=== PATIENT | female | born 1935 | race Caucasian/White ===

== ENCOUNTER 2019-03-16 10:45 | Inpatient (IN) | payer OTHER ==
[~2019-03-16] VITALS: Ht 157.5 cm; Wt 41.7 kg
[2019-03-16 10:55] VITALS: BP_SYST 149
--- NOTE | 2019-03-16 10:55 | NUR ---
Patient to ER bed 7 to gown for evaluation. Side rails up. Report given to VICTORIA Arnold.
--- NOTE | 2019-03-16 11:00 | NUR ---
BIB family for medical clearance. Patient A&O x3, ambulatory to ER, skin pink and warm, urdu speaking only. 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 "danger to self" per family. Patient climbing out of windows, hitting self, increased agression. Insomnia. Patient answering questions appropriately, agreeable.
--- NOTE | 2019-03-16 11:12 | NUR ---
Called [facility], no beds available for females. Spoke with Erendira, charge nurse.
[2019-03-16 11:37] LABS: BASOPHILS # (AUTO) 0.1 K/uL (0.0-0.2); BASOPHILS % (AUTO) 1.1 % (0.0-2.0); EOSINOPHILS # (AUTO) 0.3 K/uL (0.0-0.4); EOSINOPHILS % (AUTO) 4.6 % (0.0-4.0); HEMATOCRIT 38.5 % (36-48); HEMOGLOBIN 12.8 g/dL (12.0-16.0); LYMPHOCYTES # (AUTO) 1.3 K/uL (1.0-5.5); MEAN CORPUSCULAR HEMOGLOBIN 34 pg (27-31); MEAN CORPUSCULAR HGB CONC 33 % (32-36); MEAN CORPUSCULAR VOLUME 101 fL (79.0-98.0); MONOCYTES # (AUTO) 0.3 K/uL (0.0-1.0); MONOCYTES % (AUTO) 4.2 % (1.7-9.3); NEUTROPHILS # (AUTO) 4.6 K/uL (1.8-7.7); NEUTROPHILS % (AUTO) 70.1 % (40.0-70.0); PLATELET COUNT (AUTO) 239 K/uL (130-430); RED BLOOD CELL COUNT(AUTO) 3.81 MIL/uL (4.2-6.2); RED CELL DISTRIBUTION WIDTH 15.1 % (9.0-15.0); WHITE BLOOD COUNT (AUTO) 6.6 K/uL (4.8-10.8)
[2019-03-16 11:54] LABS: ANION GAP 12 (5-15); CHLORIDE 104 mmol/L (98-107); GLUCOSE 105 mg/dL (70-99); SODIUM SERUM 138 mmol/L (136-145); UREA NITROGEN, BLOOD 32 mg/dL (8-21)
--- NOTE | 2019-03-16 12:07 | NUR ---
Dr. Yee at bedside for discussion of plan of care. Patients family member at bedside is refusing to take the patient home. Per Dr. Yee call the insurance company for possible admission.
[2019-03-16 12:08] LABS: ALANINE AMINOTRANSFERASE 69 U/L (12-78); ALBUMIN 4.1 g/dL (3.4-4.8); ASPARTATE AMINOTRANSFERASE 59 U/L (10-37); TOTAL BILIRUBIN 0.9 mg/dL (0.0-1.0)
[2019-03-16 12:10] LABS: ACETAMINOPHEN < 1 ug/mL (1-30); ALCOHOL, BLOOD < 3 mg/dL (<10)
[2019-03-16] MEDS ORDERED: HALOPERIDOL LACTATE 5 MG/ML VIAL IM ONE (12:15)
--- NOTE | 2019-03-16 12:50 | NUR ---
Pt daughter, Stacy, left ED. Requests to be informed of any change in pt status.
[2019-03-16 12:59] LABS: BILIRUBIN,URINE NEGATIVE (NEGATIVE); BLOOD, URINE NEGATIVE (NEGATIVE); COLOR,URINE YELLOW (YELLOW); GLUCOSE,URINE NEGATIVE (NEGATIVE); KETONES,URINE NEGATIVE (NEGATIVE); LEUKOCYTE ESTERASE ,URINE 1+ (NEGATIVE); NITRITE, URINE NEGATIVE (NEGATIVE); PROTEIN URINE 1+ (NEGATIVE); UROBILINOGEN,URINE 0.2 (0.2-1.0)
[2019-03-16 13:04] LABS: CLARITY/URINE HAZY (CLEAR)
[2019-03-16 13:10] LABS: BACTERIA,URINE MODERATE /HPF (None Seen); RBC,URINE 0-3 /HPF (0-3)
[2019-03-16 13:17] LABS: BARBITURATE, URINE NEGATIVE (NEG <=200); BENZODIAZEPINE, URINE NEGATIVE (NEG <=150); CANNABINOID, URINE NEGATIVE (NEG <=50); COCAINE, URINE NEGATIVE (NEG <=150); METHAMPHETAMINES SCREEN,URINE NEGATIVE (NEG <=500); OPIATE, URINE NEGATIVE (NEG <=100); PHENCYCLIDINE SCREEN,URINE NEGATIVE (NEG <=25); UR TRICYCLIC ANTIDEPRESSANTS NEGATIVE (NEG <=300); URINE AMPHETAMINE NEGATIVE (NEG <=500); URINE METHADONE NEGATIVE (NEG <=200); URINE OXYCODONE SCREEN NEGATIVE (NEG <=100); URINE PROPOXYPHENE SCREEN NEGATIVE (NEG <=300)
[2019-03-16] MEDS ORDERED: LIP80 PO (13:57)
[2019-03-16] MEDS ORDERED: NOR10 PO (13:59)
[2019-03-16] MEDS ORDERED: ASPI-1153 PO (14:00)
[2019-03-16] MEDS ORDERED: MIRT15TA7 PO (14:01)
--- NOTE | 2019-03-16 14:30 | NUR ---
Patient will be admitted to care of Dr Yan. Admitted toTele unit. Will go to room 121A. Belongings list completed. Complete and up to date summary report printed. SBAR report to be given at bedside with opportunity for questions.
[2019-03-16 14:40] VITALS: BP_SYST 140
--- NOTE | 2019-03-16 14:40 | NUR ---
Admission: Received from ER on a gurney with the diagnosis of ALOC. Syrian speaking only. BRP with assist. Accompanied by daughter Stacy. Oriented to room, call light within reach.
[2019-03-16] MEDS ORDERED: FLU VACC TS2019(65UP)/MF59C/PF 45 MCG/0.5 ML SYRINGE I.M. PRN (15:15)
[2019-03-16] MEDS: KCL 20 mEq in D5/0.45NS 1000mL 1,000 ML IV SCH (15:54)
[2019-03-16 16:16] VITALS: BP_SYST 140
--- NOTE | 2019-03-16 18:11 | NUR ---
CLOSING NOTE Pt sitting up in bed eating her dinner. No s/s resp distress, no c/o pain or discomfort. IVF infusing well to RFA at ordered rate with no s/s infiltration to site. Safety and skin precautions remain in place. Call light within reach.
--- NOTE | 2019-03-16 19:50 | NUR ---
OPENING NOTES Patient is resting in bed, eyes open, breathing evenly and nonlabored. Patient has an IV on the right forearm 22g, patent and benign, no s/s of infiltration or infection noted, IVF running, patient is tolerating it well. Educated patient on plan of care and call light system. Bed is locked, armed and at lowest position. Fall/safety precautions. Will continue to monitor.
[2019-03-16 20:00] VITALS: BP_SYST 135
--- NOTE | 2019-03-16 20:07 | NUR ---
CONSULTATION PAGED/CALLED Reason for Consultation:DEPRESSION Person Who was Notified: MATHEW Consulting Physician: / ONCYEN Social Work Assistant Specialty: PSYCH Ordering Physician:
[2019-03-16] MEDS: ATORVASTATIN 20 MG TABLET PO SCH (20:57)
[2019-03-16] MEDS: traZODone HCL 50 MG TABLET (DESYREL) PO SCH (20:57)
[2019-03-16] MEDS: MIRTAZAPINE 15 MG TABLET PO SCH (20:57)
[2019-03-16] MEDS: ENOXAPARIN SODIUM 30 MG/0.3 ML SYRINGE SUBCUT SCH (21:00)
--- NOTE | 2019-03-16 21:00 | NUR ---
MEDICATION/ROUNDS Patient is resting in bed, awake, breathing evenly and nonlabored. Educated patient on medications, patient stated understanding. Administered medications, patient tolerated it well. No s/s of distress at this time, no other needs at this time. Fall/safety precautions.
[2019-03-16] MEDS: cefTRIAXone 1 GM in D5W 50 ML IV SCH (21:07)
[2019-03-16] MEDS ORDERED: cefTRIAXone 1 GM VIAL ONE (21:12)
--- NOTE | 2019-03-16 22:55 | NUR ---
ROUNDS Patient is resting in bed, awake, breathing evenly and nonlabored. No s/s of distress at this time, no other needs at this time. Fall/safety precautions. Will continue to monitor.
[2019-03-17 00:01] VITALS: BP_SYST 140
[2019-03-17 00:03] VITALS: BP_SYST 144
--- NOTE | 2019-03-17 00:43 | NUR ---
ROUNDS Patient is resting in bed, eyes closed, breathing evenly and nonlabored. No s/s of distress at this time, no other needs at this time. Fall/safety precautions.
--- NOTE | 2019-03-17 02:45 | NUR ---
ROUNDS Patient is resting in bed, eyes closed, breathing evenly and nonlabored. No s/s of distress at this time, no other needs at this time. Fall/safety precautions. Will continue to monitor.
[2019-03-17] MEDS: KCL 20 mEq in D5/0.45NS 1000mL 1,000 ML IV SCH ×2 (03:51→18:42)
--- NOTE | 2019-03-17 04:18 | NUR ---
ROUNDS Patient is resting in bed, awake, breathing evenly and nonlabored. IVF replaced. No s/s of distress at this time, no other needs at this time. Fall/safety precautions. Will continue to monitor. Addendum: 03/17/19 at 0419 by Toñito Jimenez RN Patient is resting in bed, eyes closed, breathing evenly and nonlabored
--- NOTE | 2019-03-17 06:21 | NUR ---
CLOSING NOTE Patient asleep, breathing is even and unlabored, IV Line intact and patent, IVF continues to infuse, patient needs attended through out the shift, fall and safety measures maintained, will continue to monitor until report given to am nurse.
[2019-03-17 07:41] LABS: EOSINOPHILS # (AUTO) 0.1 K/uL (0.0-0.4); EOSINOPHILS % (AUTO) 3.5 % (0.0-4.0); HEMATOCRIT 32.9 % (36-48); HEMOGLOBIN 11.1 g/dL (12.0-16.0); LYMPHOCYTES # (AUTO) 1.2 K/uL (1.0-5.5); LYMPHOCYTES % (AUTO) 29.8 % (20.5-51.5); MEAN CORPUSCULAR HEMOGLOBIN 29 pg (27-31); MEAN CORPUSCULAR HGB CONC 34 % (32-36); MEAN CORPUSCULAR VOLUME 86 fL (79.0-98.0); MONOCYTES # (AUTO) 0.4 K/uL (0.0-1.0); MONOCYTES % (AUTO) 9.9 % (1.7-9.3); NEUTROPHILS # (AUTO) 2.3 K/uL (1.8-7.7); NEUTROPHILS % (AUTO) 55.8 % (40.0-70.0); PLATELET COUNT (AUTO) 208 K/uL (130-430); RED BLOOD CELL COUNT(AUTO) 3.83 MIL/uL (4.2-6.2); RED CELL DISTRIBUTION WIDTH 14.6 % (9.0-15.0); WHITE BLOOD COUNT (AUTO) 4.2 K/uL (4.8-10.8)
[2019-03-17 07:53] LABS: ANION GAP 7 (5-15); CALCIUM 8.7 mg/dL (8.4-11.0); CHLORIDE 102 mmol/L (98-107); CREATININE 0.94 mg/dL (0.55-1.30); GLUCOSE 82 mg/dL (70-99); POTASSIUM 4.3 mmol/L (3.5-5.1); SODIUM SERUM 137 mmol/L (136-145); UREA NITROGEN, BLOOD 24 mg/dL (8-21)
[2019-03-17 08:10] VITALS: BP_SYST 136
--- NOTE | 2019-03-17 08:10 | NUR ---
INITIAL ROUNDS Received pt AAOx2, no s/s resp distress, no c/o pain or discomfort. IVF infusing well to RFA at ordered rate with no s/s infiltration to site. Pt assisted to the bathroom with steady gait, pt voided. Plan of care for the day reviewed with pt-pt just nodded her head yes. Side rails up x3, bed alarm on and room across from nursing station for safety. Call light within reach.
[2019-03-17] MEDS: ASPIRIN 81 MG TABLET(ECOTRIN) PO SCH (09:42)
[2019-03-17] MEDS: amLODIPine BESYLATE 10 MG TABLET PO SCH (09:43)
--- NOTE | 2019-03-17 11:22 | NUR ---
ROUNDS Pt sitting up in bed visiting with her family, no s/s resp distress, no c/o pain or discomfort. Pt calm. All precautions remain in place. Call light within reach.
[2019-03-17 16:38] VITALS: BP_SYST 136
--- NOTE | 2019-03-17 18:34 | NUR ---
CLOSING NOTE/ Pt sitting up in bed visiting with her family, no s/s resp distress, no c/o pain or discomfort. IVF infusing well at ordered rate with no s/s infiltration to site. Pt seen by Dr. Yan, no new orders noted. All precautions remain in place.
--- NOTE | 2019-03-17 19:42 | NUR ---
OPENING NOTES Patient is resting in bed, eyes open, breathing evenly and nonlabored, daughter in law at bedside. Patient has an IV on the right forearm 22g, patent and benign, no s/s of infiltration or infection noted, IVF running, patient is tolerating it well. Educated patient and family on plan of care, fall/safety precautions, and call light system, patient and family stated understanding with return demonstration. Bed is locked, armed and at lowest position. Fall/safety precautions. Will continue to monitor.
[2019-03-17 19:50] VITALS: BP_SYST 140
[2019-03-17] MEDS: MIRTAZAPINE 15 MG TABLET PO SCH (20:01)
[2019-03-17] MEDS: cefTRIAXone 1 GM in D5W 50 ML IV SCH (20:01)
[2019-03-17] MEDS: ATORVASTATIN 20 MG TABLET PO SCH (20:01)
[2019-03-17] MEDS: ENOXAPARIN SODIUM 30 MG/0.3 ML SYRINGE SUBCUT SCH (20:02)
[2019-03-17] MEDS: traZODone HCL 50 MG TABLET (DESYREL) PO SCH (20:02)
--- NOTE | 2019-03-17 20:10 | NUR ---
MEDICATION/ROUNDS Patient is resting in bed, awake, breathing evenly and nonlabored, daughter in law at bedside. Educated patient and family on medications, patient and family stated understanding. Administered medications, patient tolerated it well. No s/s of distress at this time, no other needs at this time. Fall/safety precautions.
[2019-03-18 00:10] VITALS: BP_SYST 144
--- NOTE | 2019-03-18 00:23 | NUR ---
ROUNDS Patient awake, getting out of bed, confused, reoriented to time and place, vital signs stable, bed alarm on, safety measures in place, will monitor.
--- NOTE | 2019-03-18 04:15 | NUR ---
ROUNDS Patient is resting in bed, eyes open, breathing evenly and nonlabored. Patient has been awake and restless intermittently throughout the night. Reoriented patient, patient stated understanding and said she has difficulty with sleeping/staying asleep. No other needs at this time. Fall/safety precautions.
--- NOTE | 2019-03-18 04:59 | NUR ---
FOLLOWED FOLLOWED UP CONSULT FOR DR. MACK I SPOKE WITH WINNIE BROWN FACED SHEET WAS FAXED
--- NOTE | 2019-03-18 06:25 | NUR ---
CLOSING NOTE Patient asleep, breathing is even and unlabored, IV Line intact and patent, patient needs attended through out the shift, fall and safety measures maintained, will continue to monitor until report given to am nurse.
--- NOTE | 2019-03-18 07:14 | NUR ---
Nutrition Update Livan Scale 18 noted. Pt admitted for Alternate level of care Diet: regular BMI: 16.8 kg/m2 RD to follow per nutrition care standards.
--- NOTE | 2019-03-18 07:39 | NUR ---
INITIAL NOTE PT RESTING IN BED, NO ACUTE DISTRESS NOTED, BREATHING EVEN AND UNLABORED. NO IV ACCESS. PER PACKING MACHINE PILOT CAN ROUTER PT PULLED OUT IV, WILL REATTEMPT ACCESS WHEN PT AWAKE. CALL LIGHT WITHIN REACH, BED IN LOW AND LOCKED POSITION WITH BED ALARM ON.
[2019-03-18 08:00] VITALS: BP_SYST 124
--- NOTE | 2019-03-18 08:20 | NUR ---
AMBULATING INTO OTHER PT ROOMS REORIENTED PT BACK TO ROOM. PT CONFUSED, WANTS SHIRT AND TO TAKE OFF HOSPITAL GOWN, STATES SHE WANTS TO LEAVE. REORIENTED PT BACK ONTO EDGE OF BED AND SET UP BREAKFAST TRAY. PT COOPERATIVE. PT REFUSING TO WEAR TELEMETRY BOX AND REFUSING IV ACCESS. WILL REATTEMPT LATER.
[2019-03-18] MEDS: ASPIRIN 81 MG TABLET(ECOTRIN) PO SCH (08:23)
[2019-03-18] MEDS: amLODIPine BESYLATE 10 MG TABLET PO SCH (08:24)
--- NOTE | 2019-03-18 10:40 | NUR ---
EXIT ALARM PT OPENED EXIT DOOR, ALARM INITIATED. PT REORIENTED BACK INTO ROOM. PT SITTING ON BEDSIDE CHAIR WITH BLANKET. NO ACUTE DISTRESS NOTED. WILL CONTINUE TO MONITOR. PT ALLOWED TO PLACE TELEMETRY BOX.
--- NOTE | 2019-03-18 11:45 | NUR ---
RN ROUNDS REORIENTED PT BACK TO BED TO EAT LUNCH. PT HAS GOOD APPETITE. NO ACUTE DISTRESS NOTED.
[2019-03-18 12:18] VITALS: BP_SYST 153
--- NOTE | 2019-03-18 12:51 | NUR ---
Dietitian Recommendations *Recommend regular diet w/ Ensure Enlive TID. ONS will provide 1050 kcal and 60gm protein daily. Please see Nutritional Assessment for details. TERRENCE, RD
--- NOTE | 2019-03-18 14:00 | NUR ---
RN ROUNDS PT SITTING IN HALLWAY QUIETLY. PT REMAINS CONFUSED. REORIENT PT BACK INTO SEAT. PT COOPERATIVE.
--- NOTE | 2019-03-18 15:29 | NUR ---
SS NOTE: SUPERVISOR [employer] was referred by CM to see patient for DCP. Demographic information confirmed (PCP: Dr. Gigi Rice of [facility]) SUPERVISOR [employer] met with patient and daughter, Stacy at bedside. Pt appeared to be well-groomed and normal mood. Pt is confused and disoriented. Per daughter, pt lives with his son, dtr-in-law and spouse in [facility] but since she needs constant care, the children take turns taking care of her. Pt is independent with ADL's except when showering. Pt does not own any DME's. Per dtr, pt had a stroke in 09/2018 and since then she has been "disoriented, confused, nonsensical, loss of short term memory and wanders around". Dtr states pt has a history of mental health, depression, anxiety and possible bipolar but undiagnosed. Dtr states since her stroke, there are times when the patient is awake 3 days straight. Dtr states pt has a good appetite but sometimes forgets to drink her liquids. Pt has not seen any psychiatrist but only sees her PCP in [facility]. Dtr contacted insurance and was given SNF lists that are in-network. Dtr states if SNF is indicated, they would prefer for her to go to [facility], [facility] or any around [facility]; CM notified. SS will remain available when needed. Addendum: 03/18/19 at 1543 by Angelina BRADY SUPERVISOR [employer] informed daughter of the benefit of memory care, per dtr, they would want something that the insurance pays for.
--- NOTE | 2019-03-18 16:16 | NUR ---
DC Planning: late entry : LVM to Josefa at [facility] this am , requesting assistance to find snf placement. 1600 : received call back from Josefa care coodinator direct phone line # [phone], fax # [phone] who transfer me to AVILA Chao # [phone], requesting for snf vs HH list and her assistance to find a service for the pt. If pt needs snf for IV ABX, she will require to be in a locked unit due to her psych issues and wanderer around. Per Zhanna, that will be difficult to find such place in [facility]. Zhanna made aware the dc is pending UA culture and psych consultation . She provided snf and HH list and infusion com. as follow: snf: [facility] snf # [phone] [facility] # [phone] [place] snf # [phone] [facility] C[facility] # [place] # [phone] [facility] snf # [phone] HH : [facility] # [phone] [facility] HH # [phone] [facility] [place] # [phone] [facility] HH # [phone] IV infusion co: [facility] # [phone].
[2019-03-18 16:26] VITALS: BP_SYST 138
--- NOTE | 2019-03-18 16:45 | NUR ---
RN ROUNDS PT SITTING IN FRONT OF NURSES STATION. PT QUIET, DRINKING WATER.
[2019-03-18] MEDS: KCL 20 mEq in D5/0.45NS 1000mL 1,000 ML IV SCH ×2 (18:34→23:33)
--- NOTE | 2019-03-18 18:37 | NUR ---
CLOSING NOTE PT SITTING IN FRONT OF NURSES STATION. PT REFUSED IV ACCESS. FAMILY AT PT SIDE. ALL NEEDS MET THROUGHOUT SHIFT. WILL CONTINUE TO MONITOR UNTIL PT CARE IS ENDORSED TO WOOL SORTER RN.
--- NOTE | 2019-03-18 19:10 | NUR ---
OPENING NOTES/ IV LINE access Patient awake AOx1, confusion noted, Turkish speaking, family at bed side. Patient is ambulatory. RN asked patient to have and IV access, Words translated by family, patient agreed. IV inserted in one attempt with 22G needle, patient tolerated well. Call light within reach, patient educated to use the call light when assistance is needed. Bed alarm on. Safety precautions in place. Will continue to monitor patient.
[2019-03-18 20:00] VITALS: BP_SYST 150
[2019-03-18] MEDS ORDERED: QUEtiapine FUMARATE 25 MG TABLET PO SCH (21:00)
[2019-03-18] MEDS: MIRTAZAPINE 15 MG TABLET PO SCH (22:37)
[2019-03-18] MEDS: QUEtiapine FUMARATE 25 MG TABLET PO SCH (22:37)
[2019-03-18] MEDS: traZODone HCL 50 MG TABLET (DESYREL) PO SCH (22:37)
[2019-03-18] MEDS: ATORVASTATIN 20 MG TABLET PO SCH (22:37)
[2019-03-18] MEDS: ENOXAPARIN SODIUM 30 MG/0.3 ML SYRINGE SUBCUT SCH (22:41)
[2019-03-18] MEDS: cefTRIAXone 1 GM in D5W 50 ML IV SCH (22:42)
--- NOTE | 2019-03-18 22:45 | NUR ---
CONFUSED Patient wandered around the hospital, wanted to go to the door.Attempted to open the exit door. Becki RODRIGUEZ help for translation but patient unable to verbalized understanding and insisted to open the exit door, Patient attempted to hit Charge Nurse Tiffany when being help back to bed. Patient was educated regarding safety in the hospital but patient is confused and still want to go out. Called security for help. Family was informed. Will inform Dr. Stephenson.
--- NOTE | 2019-03-18 23:01 | NUR ---
Paged Dr. Yan
--- NOTE | 2019-03-18 23:22 | NUR ---
SPOKE WITH MD Dr. Yan made aware of patients situation. gave new order. Will carry out.
[2019-03-18] MEDS ORDERED: HALOPERIDOL LACTATE 5 MG/ML VIAL IM ONE (23:30)
[2019-03-18] MEDS ORDERED: HALOPERIDOL LACTATE 5 MG/ML VIAL ONE (23:41)
[2019-03-19] VITALS: BP_SYST 158
--- NOTE | 2019-03-19 01:14 | NUR ---
RN ROUNDS Patient asleep at this time. No signs of respiratory distress and discomfort noted. Breathing even and unlabored. IVF infusing well, patency noted. Safety precautions in place. Bed alarm on. Will continue to monitor patients
--- NOTE | 2019-03-19 05:05 | NUR ---
VOIDED Patient woke up and assisted to bathroom, patient voided, confusion noted and crying calling for "Aaron''. No signs of respiratory distress. IVF infusing well, patency noted. Patient safely assisted back to bed. Safety precautions in place. Bed alarm on. Will continue to monitor patient. Addendum: 03/19/19 at 0651 by Beverly Scott RN patient voided twice
--- NOTE | 2019-03-19 06:51 | NUR ---
CLOSING NOTES Patient is sitting in wheelchair with seat belt on in front of nursing station, confusion noted. No signs of respiratory distress and discomfort noted. IVF infusing well, patency noted. Safety precautions in place.. All needs met throughout the shift. Will continue to monitor until endorse to oncoming shift nurse for continuity of care.
--- NOTE | 2019-03-19 07:53 | NUR ---
Initial notes- Pt is sitting in the wheelchair in front of the nurses station, pt is confused and very agitated at this time. Wants to get up, try to walk patient but she keeps pushing the nurse. Assisted patient back to the wheechair.V/s stable. safety precaution observed. will continue to monitor.
[2019-03-19] MEDS: amLODIPine BESYLATE 10 MG TABLET PO SCH (08:03)
[2019-03-19] MEDS: QUEtiapine FUMARATE 25 MG TABLET PO SCH ×3 (08:03→21:16)
[2019-03-19] MEDS: ASPIRIN 81 MG TABLET(ECOTRIN) PO SCH (08:03)
[2019-03-19 08:07] VITALS: BP_SYST 140
--- NOTE | 2019-03-19 10:36 | NUR ---
Notes- In bed, sleeping at this time. breathing even and unlabored. IVF infusing well. Bed alarm on. Will continue to monitor.
[2019-03-19 12:35] VITALS: BP_SYST 133
[2019-03-19] MEDS: KCL 20 mEq in D5/0.45NS 1000mL 1,000 ML IV SCH (12:54)
--- NOTE | 2019-03-19 13:00 | NUR ---
Notes- Assisted to the bathroom and had bowel movement. Assisted back to bed, drowsy, refused to eat lunch for now. Safety precaution observed. bed alarm on.
--- NOTE | 2019-03-19 14:58 | NUR ---
Notes- Resting in bed, calm at this time. no acute distress noted.
[2019-03-19 16:21] VITALS: BP_SYST 142
--- NOTE | 2019-03-19 16:49 | NUR ---
Discharge Planning Patient's daughter, Stacy [phone], called requesting an update on discharge to SNF. Explained CM hours over so no discharge today. Put note on Jill GRAMAJO desk for follow up tomorrow.
--- NOTE | 2019-03-19 17:00 | NUR ---
DC Planning: spoke with Stacy/jena re dcp to a contracted snf in [facility] or any where. Dtr agreed with POC. She wants to be notified where accepting and when to transfer. Darylr made aware that in case that pt is cleared to go home with home health. She will need to take pt home and to find a memory care unit for rn ante partum placement. The pt does not have this benefits per Eros abbott. Angelina, it project manager please give Assisted Living machine joint cutter to Stacy in am. (Dtr said will come in tomorrow)
--- NOTE | 2019-03-19 18:36 | NUR ---
Notes- Pt is awake now and wants to eat, set up dinner tray. pt feed self. IVF infusing well. no distress noted. Will endorse
--- NOTE | 2019-03-19 19:31 | NUR ---
OPENING NOTES Patient asleep, calm. No signs of respiratory distress and discomfort noted. Breathing even and unlabored. IVF infusing well, patency noted. Call light within reach. Bed locked and in lowest position. Safety precautions in place. Bed alarm on. Will continue to monitor patient.
[2019-03-19] MEDS ORDERED: HALOPERIDOL LACTATE 5 MG/ML VIAL IM ONE (19:45)
[2019-03-19 20:00] VITALS: BP_SYST 127
[2019-03-19] MEDS: cefTRIAXone 1 GM in D5W 50 ML IV SCH (21:15)
--- NOTE | 2019-03-19 21:15 | NUR ---
MED PASS Due medication given at this time. No signs of respiratory distress noted. Denies pain and discomfort. IVF infusing well, patency noted. Patient is cooperative and calm. No agitation noted. Safety precautions in place. Will continue to monitor patient
[2019-03-19] MEDS: MIRTAZAPINE 15 MG TABLET PO SCH (21:16)
[2019-03-19] MEDS: ENOXAPARIN SODIUM 30 MG/0.3 ML SYRINGE SUBCUT SCH (21:16)
[2019-03-19] MEDS: traZODone HCL 50 MG TABLET (DESYREL) PO SCH (21:16)
[2019-03-19] MEDS: ATORVASTATIN 20 MG TABLET PO SCH (21:16)
--- NOTE | 2019-03-19 22:00 | NUR ---
VOIDED Patient was assisted bedside commode. No signs of respiratory distress and discomfort noted. Patient was safely assisted back to bed. Safety precautions in place. Will continue to monitor
--- NOTE | 2019-03-20 00:25 | NUR ---
RN ROUNDS Patient asleep at this time. No signs of respiratory distress and discomfort noted. Breathing even and unlabored. IVF infusing well. Safety precautions in place. Will continue to monitor patient.
[2019-03-20 00:38] VITALS: BP_SYST 120
[2019-03-20] MEDS: KCL 20 mEq in D5/0.45NS 1000mL 1,000 ML IV SCH ×2 (01:22→14:28)
--- NOTE | 2019-03-20 02:58 | NUR ---
RN ROUNDS Patient awake sitting calmly in bed. No signs of respiratory distress and discomfort noted. Breathing even and unlabored. IVF infusing well. Safety precautions in place. Bed alarm on. Will continue to monitor patient.
--- NOTE | 2019-03-20 03:43 | NUR ---
RN ROUNDS/ VOIDED Assisted patient to bedside commode and assisted safely back to bed. No signs of respiratory distress noted. Denies pain and discomfort. Patient is calm and cooperative. Safety precautions in place. Will continue to monitor
--- NOTE | 2019-03-20 04:30 | NUR ---
RN ROUNDS Patient sleeping this time. No signs of respiratory distress and discomfort noted. Breathing even and unlabored. IVF infusing well. Safety precautions in place. Bed alarm on. Will continue to monitor patient.
[2019-03-20] MEDS: QUEtiapine FUMARATE 25 MG TABLET PO SCH ×3 (06:13→20:11)
--- NOTE | 2019-03-20 06:18 | NUR ---
CLOSING NOTES Patient assisted to bedside commode and assisted safely back to bed. Patient is awake sitting calmly in bed. Patient is cooperative. No signs of respiratory distress noted. Denies pain and discomfort. IVF infusing well, patency noted. Safety precautions in place. Bed alarm on. Bed locked and lowest position. All needs met throughout the shift. Will continue to monitor until endorse to oncoming shift nurse for continuity of care
--- NOTE | 2019-03-20 07:20 | NUR ---
AM ROUNDS: RECEIVED REPORT FROM NIGHT NURSE JOSE ROBERTO.PATIENT SLEEPING DURING ROUNDS. BED LOCKED AT LOWEST POSITION. BED ALARM ON. NO ACUTE DISTRESS.
[2019-03-20 08:00] VITALS: BP_SYST 143
[2019-03-20] MEDS: ASPIRIN 81 MG TABLET(ECOTRIN) PO SCH (08:31)
[2019-03-20] MEDS: amLODIPine BESYLATE 10 MG TABLET PO SCH (08:32)
--- NOTE | 2019-03-20 09:20 | NUR ---
RN ROUNDS: PATIENT CALM. NO UNTOWARD MANIFESTATIONS NOTED.
--- NOTE | 2019-03-20 09:57 | NUR ---
DCP: ABDULAZIZ Pedroza is faxing snf referrals to contracted snfs per list received from [facility]--will f/u w/jena Kumar [phone]. Addendum: 03/20/19 at 1007 by Amy Guidry RN I LVM to jena Kumar at [phone] to call me re: snf dc planning to contracted facility explaining pt would be going as [facility] for IV antibiotics--ADAMS KESSLER
--- NOTE | 2019-03-20 11:22 | NUR ---
Discharge Planning: DCP faxed patients referral to [facility] (f [phone] p [phone]) [facility], [facility] (f [phone] p [phone]) [facility] [phone] p [phone]) [facility] in admissions,[facility] (f [phone] p [phone]) DCP to follow up. Addendum: 03/20/19 at 1626 by Kasia Whelan DP [facility] (f [phone] p [phone]) [facility]- pt not appropriate [facility] (f [phone] p [phone]) Jihan in admissions- per Jihan inquiry being [facility] (f [phone] p [phone]) Keerthi in admissions- declined do to behavior issues [facility] (f [phone] p [phone]) Per Tamara DCP to follow up. Declined no beds. CM emailed daughter for more SNF choices.
--- NOTE | 2019-03-20 11:27 | NUR ---
RN ROUNDS: AWAKE,RESTING. NOT IN ANY DISTRESS.
[2019-03-20 11:42] VITALS: BP_SYST 133
--- NOTE | 2019-03-20 12:16 | NUR ---
Case mgt: S/w dtr Stacy --she was made aware we are faxing SNF referrals from the contracted list --Stacy indicates [facility] gave her a list for Residential Care facilities also. Pt has IV Rocephin at this time for UTI--The [facility] watch case polisher is Reynaldo at [phone]-- RN
--- NOTE | 2019-03-20 13:39 | NUR ---
RN ROUNDS: FAMILY AT THE BEDSIDE. PATIENT SITTING ON THE CHAIR EARLIER.THEN FAMILY ASSISTED HER BACK TO BED. NO DISTRESS.
--- NOTE | 2019-03-20 15:30 | NUR ---
RN ROUNDS: NO ACUTE DISTRESS. RESTING.
[2019-03-20 16:02] VITALS: BP_SYST 138
--- NOTE | 2019-03-20 18:46 | NUR ---
CLOSING NOTES: PATIENT CALM THIS TIME. ATE DINNER WELL. CALL LIGHT WITH IN REACH. BED LOCKED AT LOWEST POSITION. SAFETY MEASURES RENDERED. CONDITION GUARDED.
--- NOTE | 2019-03-20 19:35 | NUR ---
ROUNDS PATIENT SITTING UP IN BED, NOT IN DISTRESS, VITALS STABLE, DENIES ANY PAIN AND DISCOMFORT AT THIS TIME. FAMILY AT THE BEDSIDE. ASSESSMENT DONE AND DOCUMENTED. SEE FLOWSHEET. NEEDS ATTENDED TO. SAFETY AND FALL PRECAUTION MEASURES IN PLACED. BED IN LOW AND LOCKED POSITION. BED ALARM ON. CALL LIGHT PLACED WITHIN REACH.
[2019-03-20 20:00] VITALS: BP_SYST 146
[2019-03-20] MEDS: traZODone HCL 50 MG TABLET (DESYREL) PO SCH (20:10)
[2019-03-20] MEDS: MIRTAZAPINE 15 MG TABLET PO SCH (20:11)
[2019-03-20] MEDS: ATORVASTATIN 20 MG TABLET PO SCH (20:11)
[2019-03-20] MEDS: cefTRIAXone 1 GM in D5W 50 ML IV SCH (20:12)
[2019-03-20] MEDS: ENOXAPARIN SODIUM 30 MG/0.3 ML SYRINGE SUBCUT SCH (20:14)
--- NOTE | 2019-03-20 21:12 | NUR ---
MEDICATIONS DUE MEDICATIONS GIVEN ORDERED, TOLERATED WELL. WILL CONTINUE TO MONITOR.
[2019-03-21] VITALS: BP_SYST 135
--- NOTE | 2019-03-21 00:23 | NUR ---
PATIENT RESTING: Patient resting quietly. No acute distress noted. Vital signs within normal range.
--- NOTE | 2019-03-21 02:07 | NUR ---
ROUNDS PATIENT ASLEEP, RESPIRATIONS EVEN AND UNLABORED, NO SIGNS OF ANY PAIN AND DISCOMFORT AT THIS TIME. WILL CONTINUE TO MONITOR.
--- NOTE | 2019-03-21 04:13 | NUR ---
PATIENT RESTING: Patient resting quietly. No acute distress noted. Vital signs within normal range.
[2019-03-21] MEDS: QUEtiapine FUMARATE 25 MG TABLET PO SCH ×3 (06:03→20:54)
[2019-03-21] MEDS: KCL 20 mEq in D5/0.45NS 1000mL 1,000 ML IV SCH (06:04)
--- NOTE | 2019-03-21 06:24 | NUR ---
CLOSING NOTES PATIENT AWAKE, VITALS STABLE, NO PAIN AT THIS TIME. ALL NEEDS ATTENDED TO. SAFETY AD FALL MEASURES MAINTAINED. CALL LIGHT PLACED WITHIN REACH.
--- NOTE | 2019-03-21 07:40 | NUR ---
RECEIVED REPORT @ BS FROM MATHEW MERAZ RN. PATIENT AA, CONFUSED, SKIN W/D TO TOUCH, PT OOB SITTING CHAIR W/ C/O FEELING SLEEPY.IVF INFUSING D51/2 NS + 20MEQ KCL @ 75 ML/HR VIA LEFT FA, SITE INTACT, WRAPPED FOR SAFETY/ SITE PROTECTION.@ PRESENT VOICES NO C/O PAIN, WARM BLANKET GIVEN C/O FEELING COLD.
[2019-03-21 08:27] VITALS: BP_SYST 142
[2019-03-21] MEDS: ASPIRIN 81 MG TABLET(ECOTRIN) PO SCH (09:00)
[2019-03-21] MEDS: amLODIPine BESYLATE 10 MG TABLET PO SCH (09:00)
--- NOTE | 2019-03-21 09:30 | NUR ---
PATIENT OOB TO CHAIR, AM PO MEDS GIVEN WITH ENSURE 240 ML, PT TOLERATED WELL. PATIENT EXPRESSED WANTING TO LAY DOWN, PLACED IN BED, COMFORT MEASURES APPLIED, W/ USE OF WARM BLANKET.
--- NOTE | 2019-03-21 10:17 | NUR ---
PATIENT ASLEEP AT PRESENT. NO S/S OF DISTRESS NOTED.
[2019-03-21 11:30] VITALS: BP_SYST 153
--- NOTE | 2019-03-21 11:57 | NUR ---
Discharge Planning: ABA TUTOR faxed pt's information to the following facilities: [facility] ([phone] [phone]). [facility] ([phone] [phone]). [facility] ([phone] [phone]). [facility] ([phone] [phone]). [facility] ([phone] [phone]). [facility] ([phone] f.[phone]). [facility] ([phone] [phone]). [facility] ([phone])-ABA TUTOR spoke to [place]; no female beds.
--- NOTE | 2019-03-21 14:00 | NUR ---
PT VISITED BT BROTHER AND FATHER AT 1210 PM, LEFT HER COOKIES AND CHIPS, PT ASLEEP THROUGH VISITATION, BEFORE LEAVING THEY LEFT HER A NOTE. PATIENT AWAKENED BY SISTER AT 1400. PT AAOX3 VOICED NO C/O PAIN OR DISCOMFORT. FAM BROUGHT HER FOOD.
--- NOTE | 2019-03-21 15:10 | NUR ---
Nutrition F/U RD reviewed pt's current EMR record including diet Hx, physician notes, nursing notes, pertinent labs/meds/procedures, care trends, and care activity. Admission Dx: Alternate level of care PMH: UTI, dehydration, metabolic encephalopathy, HTN per physician notes Current Diet Order/Nutrition Support: Regular, Ensure Enlive TID x3 days Subjective Info: Pt was seen sleeping at time of RD visit. Per EMR, PO intake records indicate 71% average x4 meals. Pt is likely meeting lower end of estimated caloric needs. Current % PO 71% average x4 meals Estimated Energy Expenditure (kcals/day) 7107-2736 kcal/day (25-30 kcal/kg CBW for gradual weight gain promotion) Estimated Protein Required (g/day) 42-63 gm/day (1-1.5 gm/kg CBW for weight gain) Estimated Fluid Required (l/day) 1.3 L/.day (30ml/kg CBW for dehydration) Problem/Etiology/Signs/Symptoms Underweight r/t altered mental status AEB BMI 16.8 kg/m2 and 84% IBW. *ongoing Expected Outcomes/Goals Monitor appetite and PO intake w/ goal of pt meeting at least 75% of estimated nutritional needs, labs trending WNL, normal GI function, skin integrity/wt maintenance. Dietitian Recommendations * Recommend continuing regular diet w/ Ensure Enlive TID (ONS provides 1050 kcal/day and 60 gm protein/day) Follow Up High Risk: F/U in 2-3 days Addendum: 03/21/19 at [address] CORRECTION: Follow Up Moderate Risk: F/U in 3-5 days
--- NOTE | 2019-03-21 15:13 | NUR ---
DISCHARGE PLANNING Spoke w dtr Stacy @ bedside & informed have not found SNF yet. States that pt cannot go home that pt's is not able to take care of her & she & pt's children work & cannot take care of pt. Explained paid caregivers, [employer]. States that cannot afford caregivers & that she has spoken with Head Housekeeper for custodial care @ [facility], Roderick Ko ph [phone], & that pt can go to [facility] or [facility] SNF. carlo Pedroza operations planner has list of SNF sent contracted w [facility]. Explained to dtr that looking for SNF have not found an accepting one yet.
--- NOTE | 2019-03-21 15:15 | NUR ---
Dietitian Recommendations * Recommend continuing regular diet w/ Ensure Enlive TID (ONS provides 1050 kcal/day and 60 gm protein/day) LP, RD Please refer to Nutrition F/U for details.
--- NOTE | 2019-03-21 15:47 | NUR ---
Discharge Planning: [facility] ([phone] [phone])-Jillian not contracted [facility] ([phone])-Marisa No beds [facility] ([phone])-Behavior issue [facility] ([phone]) -Doris no beds [facility] ([phone]) Refaxed [facility] ([phone])Hanane higgins [facility] ([phone]) no Beds DCP to follow up
[2019-03-21 16:00] VITALS: BP_SYST 114
--- NOTE | 2019-03-21 16:00 | NUR ---
IVF TUBING LEAKING, IV TUBING CHANGED, IV SITE W/ NEG FLUSH, D/C'D. NEW IV PLACEMENT 20G TO LEFT LATERAL FA, W/ POS FLUSH, AND WRAPPED W/ KERLIX FOR SAFETY. PATIENT TOLERATED WELL. IVF INFUSING PER ORDERS.
--- NOTE | 2019-03-21 18:00 | NUR ---
PT SITTING ON SIDE OF BED, EATING DINNER, ATE 70% OF MEAL PLUS 240 ML ENSURE (WHICH SHE ALSO HAD FOR BREAKFAST AND DINNER). NAD. IVF INFUSING WELL VIA INFUSION PUMP.
--- NOTE | 2019-03-21 19:45 | NUR ---
REPORT GIVEN TO NIGHT RN KATHY AT BEDSIDE
[2019-03-21 20:00] VITALS: BP_SYST 149
[2019-03-21] MEDS: cefTRIAXone 1 GM in D5W 50 ML IV SCH (20:47)
[2019-03-21] MEDS: traZODone HCL 50 MG TABLET (DESYREL) PO SCH (20:54)
[2019-03-21] MEDS: MIRTAZAPINE 15 MG TABLET PO SCH (20:54)
[2019-03-21] MEDS: ENOXAPARIN SODIUM 30 MG/0.3 ML SYRINGE SUBCUT SCH (20:55)
[2019-03-21] MEDS: ATORVASTATIN 20 MG TABLET PO SCH (21:22)
[2019-03-21 23:42] VITALS: BP_SYST 131
[2019-03-22] MEDS: LORazepam 1 MG TABLET PO PRN ×2 (01:16→08:40)
[2019-03-22] MEDS: KCL 20 mEq in D5/0.45NS 1000mL 1,000 ML IV SCH ×2 (01:16→13:35)
--- NOTE | 2019-03-22 01:57 | NUR ---
LORAZEPAM DOSE GIVEN THE PATIENT IS AWAKE AND RESTLESS, AMBULATED TO THE BATHROOM AND VOIDED FREELU
[2019-03-22] MEDS: QUEtiapine FUMARATE 25 MG TABLET PO SCH ×2 (06:03→16:21)
[2019-03-22 08:00] VITALS: BP_SYST 139
--- NOTE | 2019-03-22 08:00 | NUR ---
Note Pt assisted in sitting up in bed to eat her breakfast. No SOB/resp distress or pain/discomfort noted at this time. IV in left forearm intact and patent infusing IVF's. Pt has BSC for use. No needs noted at this time. Call light within reach.
[2019-03-22] MEDS: amLODIPine BESYLATE 10 MG TABLET PO SCH (08:12)
[2019-03-22] MEDS: ASPIRIN 81 MG TABLET(ECOTRIN) PO SCH (08:12)
--- NOTE | 2019-03-22 11:40 | NUR ---
Note Pt restless in bed, though Ativan PO was given. Pt inches to the end of the bed and then instructed to lie back down in bed frequently. Pt has been next to nurses' station all shift for close observation. Call light within reach.
[2019-03-22 12:56] VITALS: BP_SYST 150
--- NOTE | 2019-03-22 14:30 | NUR ---
Discharge Planning: TRIAL MANAGER faxed referrals to: [facility] ([phone]); TRIAL MANAGER spoke to Natalie who states that they are not contracted with [facility]. [facility] ([phone] [phone]); TRIAL MANAGER left a message for admissions department. [facility] ([phone]); TRIAL MANAGER spoke with [facility] who states that their DON reviewed the chart but that the facility is full.
--- NOTE | 2019-03-22 15:35 | NUR ---
Note Dr Yan on the floor and at pt's bedside. Dr Yan spoke to pt and pt's family who are at bedside. Verbal discharge instructions given and questions/concerns were answered at this time. Jill GRAMAJO at bedside as well at this time, speaking to family and answering questions/concerns at this time. Call light within reach.
[2019-03-22] MEDS ORDERED: SER25 PO ×2 (15:50)
[2019-03-22] MEDS ORDERED: TRAZ-250 PO (15:51)
[2019-03-22] MEDS ORDERED: LIP80 PO (15:52)
[2019-03-22 16:13] VITALS: BP_SYST 127
[2019-03-22 16:52] VITALS: BP_SYST 152
--- NOTE | 2019-03-22 18:00 | NUR ---
Note Pt was given discharge instructions, pt's granddaughter Carey and pt's Aaron also at bedside. IV in left forearm dc'd - site benign - no swelling/redness/bleeding/drainage noted at this time. Pt was checked on q1' and PRN all shift for needs and care. Pt's family fed pt her dinner. No needs noted. Prescription given to pt's granddaughter to fill. Pt will be going to live with her daughter in [place], per family statement. No SOB/resp distress or pain/discomfort noted at this time. Pt stable. Pt dressed in orange gown and sheet, as family did not have any clothes for pt. Adult brief also put on pt for trip home. Questions/concerns were answered at this time.
--- NOTE | 2019-03-22 18:20 | NUR ---
Note Pt and her family checked side table and drawers for belongings. Pt off the floor via wheelchair to private car with all belongings and discharge paperwork.
== END 2019-03-22 18:15 | disposition home or self-care (01) | DRG 70 ==
LOC: SED 10:45 → STU 13:10 → SMU 03-20 23:24
PROVIDERS: ADMIT Family Medicine; ATTEND Family Medicine
DX: G93.41 Metabolic encephalopathy (principal); N17.0 Acute kidney failure with tubular necrosis; N39.0 Urinary tract infection, site not specified; E86.0 Dehydration; I10 Essential (primary) hypertension; F41.9 Anxiety disorder, unspecified; F29 Unspecified psychosis not due to a substance or known physiological condition; Z86.73 Personal history of transient ischemic attack (TIA), and cerebral infarction without residual deficits; Z79.899 Other long term (current) drug therapy; Z79.82 Long term (current) use of aspirin; Z90.710 Acquired absence of both cervix and uterus
CPT/HCPCS: 36415; 80048; 80053; 80307; 81000-TC; 83735-TC; 85025; 93005; 96372; 99285; G0378; G0480; G0481; G0482; J0696; J1630; J1650; J7060